=== PATIENT | male | born 1940 | race Caucasian/White ===

== ENCOUNTER → 2016-07-21 | Outpatient (CLI) | payer MEDICARE, OTHER ==
--- NOTE | 2016-07-21 10:15 | RADIOLOGY REPORT (SQ) ---
EXAM DESCRIPTION: U/S RETROPERITON (RENAL/AORTA) COMPLETED DATE/TIME: 07/21/2016 10:00 am REASON FOR STUDY: HEMATURIA (R31.9) R31.9 HEMATURIA, UNSPECIFIED COMPARISON: None. TECHNIQUE: Dynamic and static grayscale images acquired of the kidneys and bladder and recorded on P ACS. Additional selected color Doppler and spectral images recorded. LIMITATIONS: None. FINDINGS: RIGHT KIDNEY: Normal size, 13 cm. Normal echogenicity. No solid or suspicious masses. No h ydronephrosis. No calcifications. LEFT KIDNEY: Normal size, 13.6 cm. Normal echogenicity. No solid or suspicious masses. No hydronephr osis. There is 11 x 15 x 11 mm echogenic focus in the left kidney. Renal pelvis prominent, but ther e is no caliectasis. BLADDER: No masses. Bilateral ureteral jets were seen. OTHER FINDINGS: No other significant finding. IMPRESSION: There is some prominent echogenic focus in the lower calyx of the left kidney suggestive of a large calculus. There is also prominence of the renal pelvis and proximal ureter but there is no true hydronephrosis. TECHNICAL DOCUMENTATION: JOB ID: [id number] [employer]- All Rights Reserved
== END ==
LOC: RAD 08:37
PROVIDERS: ATTEND Urology
DX: R31.9 Hematuria, unspecified (principal)
CPT/HCPCS: 76770

== ENCOUNTER → 2017-05-15 | Outpatient (CLI) | payer MEDICARE, OTHER ==
--- NOTE | 2017-05-15 14:54 | RADIOLOGY REPORT (SQ) ---
EXAM DESCRIPTION: MRI LUMBAR SPINE WITHOUT COMPLETED DATE/TIME: 05/15/2017 2:43 pm REASON FOR STUDY: RADICULOPATHY, LUMBOSCRAL REGION M54.17 RADICULOPATHY, LUMBOSACRAL REGION COMPARISON: None. TECHNIQUE: Sagittal and Axial imaging includes T1, T2, STIR and gradient echo sequences. Coronal T2/ HASTE imaging. LIMITATIONS: None. FINDINGS: VISUALIZED UPPER ABDOMEN: Limited evaluation. No acute or suspicious findings suggested. SEGMENTATION: No transitional anatomy. The lowest well-developed disc space is labeled L5-S1. ALIGNMENT: Anatomic. VERTEBRAE: Intact. BONE MARROW: Normal. No marrow replacement or reactive changes. DISC SIGNAL: Diffuse decreased T2 weighted intervertebral disc signal. POSTERIOR ELEMENTS: Generally intact. No pars defect evident. HARDWARE: None in the spine. CORD AND CONUS: Normal in size and signal intensity. Conus at the L1-2 level. SOFT TISSUES: No aortic aneurysm seen. No bulky retroperitoneal adenopathy or mass. No paraspinal mas s or fluid. T11-12: Mild posterior disc bulging is present with mild facet and ligament hypertrophy. No signifi cant foraminal narrowing. Benign ectasia of the T11 nerve root sleeves bilaterally. T12-L1: No central or foraminal encroachment. Mild bilateral facet hypertrophy. L1-L2: Borderline central canal narrowing results from broad diffuse posterior disc bulge and moderat e bilateral facet and ligament hypertrophy. Mild bilateral inferior foraminal narrowing without exit ing L1 nerve root impingement. L2-L3: Broad diffuse posterior disc bulging is present with moderate to marked bilateral facet and li gament hypertrophy. This causes mild central canal stenosis with flattening of the thecal sac into a triangular shape. Mild bilateral inferior foraminal narrowing without exiting L2 nerve root impinge ment. L3-L4: Broad diffuse posterior disc bulge is present with moderate bilateral facet and ligament hyper trophy. Borderline central canal stenosis. Mild bilateral inferior foraminal narrowing without exit ing L3 nerve root impingement. L4-L5: Mild diffuse posterior disc bulging is present with moderate bilateral facet and ligament hype rtrophy. Mild central canal stenosis with flattening of the thecal sac into a triangular shape. The re is moderate right hand mild left foraminal narrowing without exiting L4 nerve root impingement. L5-S1: Broad diffuse posterior disc bulge and moderate bilateral facet and ligament hypertrophy. No central stenosis. Moderate right, moderate left foraminal narrowing with partial effacement of the f at around the exiting L5 nerve roots. SACRUM: Visualized upper sacrum intact. OTHER: No other significant findings. IMPRESSION: Multilevel foraminal narrowing as above. Multilevel mild central canal narrowing TECHNICAL DOCUMENTATION: JOB ID: [id number] [employer]- All Rights Reserved Reading location - IP/workstation name: [email or web address]
== END ==
LOC: RAD 13:44
PROVIDERS: ATTEND Pain Medicine Interventional Pain Medicine
DX: M54.17 Radiculopathy, lumbosacral region (principal)
CPT/HCPCS: 72148

== ENCOUNTER 2017-11-16 10:28 | Day surgery (SDC) | payer OTHER, MEDICARE ==
[2017-10-29 09:26] LABS: HEMATOCRIT 39.2 % (37.9-51.0); HEMOGLOBIN 12.8 g/dL (13.5-17.0); MEAN CORPUSCULAR HEMOGLOBIN 28.7 pg (27.0-33.4); MEAN CORPUSCULAR HGB CONC 32.5 g/dL (32.0-36.0); MEAN CORPUSCULAR VOLUME 88 fl (80-97); PLATELET COUNT 243 10^3/uL (150-450); RED BLOOD COUNT 4.46 10^6/uL (4.35-5.55); RED CELL DISTRIBUTION WIDTH 15.5 % (11.5-14.0); WHITE BLOOD COUNT 7.1 10^3/uL (4.0-10.5)
--- NOTE | 2017-10-29 09:52 | RADIOLOGY REPORT (SQ) ---
EXAM DESCRIPTION: CHEST PA/LATERAL COMPLETED DATE/TIME: 10/29/2017 9:39 am REASON FOR STUDY: PRE-OP COMPARISON: None. EXAM PARAMETERS: NUMBER OF VIEWS: two views TECHNIQUE: Digital Frontal and Lateral radiographic views of the chest acquired. RADIATION DOSE: NA LIMITATIONS: none FINDINGS: LUNGS AND PLEURA: No opacities, masses or pneumothorax. No pleural effusion. MEDIASTINUM AND HILAR STRUCTURES: No masses or contour abnormalities. HEART AND VASCULAR STRUCTURES: Heart normal size. No evidence for failure. BONES: No acute findings. HARDWARE: None in the chest. OTHER: No other significant finding. IMPRESSION: NO SIGNIFICANT RADIOGRAPHIC FINDING IN THE CHEST. TECHNICAL DOCUMENTATION: JOB ID: [id number] [employer]- All Rights Reserved Reading location - IP/workstation name: [email or web address]
[2017-10-29 09:58] LABS: ANION GAP 11 (5-19); BLOOD UREA NITROGEN 16 mg/dL (7-20); CALCIUM 11.5 mg/dL (8.4-10.2); CARBON DIOXIDE 27 mmol/L (22-30); CHLORIDE 105 mmol/L (98-107); GLUCOSE 93 mg/dL (75-110); POTASSIUM 4.6 mmol/L (3.6-5.0); SODIUM 142.5 mmol/L (137-145)
--- NOTE | 2017-10-29 13:17 | EKG REPORT ---
SEVERITY:- ABNORMAL ECG - SINUS RHYTHM FIRST DEGREE AV BLOCK LEFT AXIS DEVIATION : Confirmed by: Cesar Thomas MD 29-Oct-2017 13:16:00
[~2017-11-16 10:28] MED LIST: CEFAZOLIN 2 GM/D5W RTU 2 GM/50 ML RTUPB IV PRN; DEXAMETHASONE SOD PHOSPHATE INJ 4 MG/1 ML VIAL ONE; GLYCOPYRROLATE 1 MG/5 ML SYRINGE ONE; LACTATED RINGERS 1000 ML IV PRN; LIDOCAINE 0.5% INJ-PF (5 MG/ML) 50 ML SDV SUBCUT PRN; METOCLOPRAMIDE HCL INJ/PF 10 MG/2 ML SDV ONE; NEOSTIGMINE METHYLSULFATE 10 MG/10 ML VIAL ONE; ONDANSETRON HCL INJ/PF 4 MG/2 ML SDV ONE; ROCURONIUM BROMIDE INJ 50 MG/5 ML VIAL IV ONE; SUCCINYLCHOLINE CHLORIDE INJ 200 MG/10 ML VIAL ONE
[2017-11-16] MEDS ORDERED: BUPIVACAINE HCL 0.5 % INJ/PF 30 ML SDV ONE (10:55)
[2017-11-16 12:05] LABS: INTERNATIONAL RATION (INR) 0.99; PROTHROMBIN TIME 13.6 SEC (11.4-15.4)
[2017-11-16 12:06] LABS: PARTIAL THROMBOPLASTIN TIME 26.9 SEC (23.5-35.8)
[2017-11-16] MEDS ORDERED: CEFAZOLIN 2 GM/D5W RTU 2 GM/50 ML RTUPB IV ONE (12:17)
[2017-11-16] MEDS ORDERED: FENTANYL CITRATE INJ/PF 250 MCG/5 ML AMPULE ONE (13:29)
[2017-11-16] MEDS ORDERED: MIDAZOLAM 2 MG/2 ML INJ ONE (13:29)
[2017-11-16] MEDS ORDERED: LIDOCAINE 2% INJ-PF (100 MG/5 ML) SYRINGE ONE (13:29)
[2017-11-16] MEDS ORDERED: MORPHINE SULFATE 10 MG/ML INJ ONE (13:30)
[2017-11-16] MEDS ORDERED: EPHEDRINE SULFATE INJ 50 MG/1 ML AMPULE ONE (13:30)
[2017-11-16] MEDS ORDERED: PROPOFOL INJ 200 MG/20 ML VIAL IV ONE (13:30)
[2017-11-16] MEDS ORDERED: DIPHENHYDRAMINE HCL 50 MG/ML VIAL IV PRN (14:41)
[2017-11-16] MEDS ORDERED: PROMETHAZINE HCL INJ 25 MG/1 ML VIAL IV PRN ×2 (14:41)
[2017-11-16] MEDS ORDERED: FENTANYL CITRATE INJ/PF 100 MCG/2 ML AMPUL IV PRN ×3 (14:41)
[2017-11-16] MEDS ORDERED: MEPERIDINE HCL/PF INJ 25 MG/1 ML DISP.SYRIN IV PRN (14:41)
[2017-11-16] MEDS ORDERED: ONDANSETRON HCL INJ/PF 4 MG/2 ML SDV IV PRN (14:41)
--- NOTE | 2017-11-16 16:08 | Discharge Summary ---
Discharge Summary (SDC) - Discharge Final Diagnosis: umbilical hernia Date of Surgery: 11/16/17 Discharge Date: 11/16/17 Condition: Stable Treatment or Instructions: Discharge home. Diet as tolerated. Activity: No lifting greater than 10 pounds x 6 weeks. Percocet 10/325 mg p.o. every 6 hours as needed pain. Follow -up with me in 7-10 days. Okay to shower in 48 hours. No tub baths times 2 weeks. Referrals: CORNELIA VERMA MD [Primary Care Provider] - Discharge Diet: As Tolerated Respiratory Treatments at Home: Deep Breathing/Coughing, Incentive Spirometer Discharge Activity: No Lifting Over 10 Pounds Report the Following to Your Physician Immediately: Shortness of Breath, Nausea , Vomiting, Increase in Pain, Fever over 101 Degrees, Unusual Bleeding, Redness , Swelling, Warmth
--- NOTE | 2017-11-16 16:28 | Operative Report ---
Nonrecallable Operative Report DATE OF SURGERY: 11/16/17 PREOPERATIVE DIAGNOSIS: Symptomatic umbilical hernia POSTOPERATIVE DIAGNOSIS: same as above OPERATION: robot assisted laparoscopic umbilical hernia repair with mesh SURGEON: CONNOR AREVALO ANESTHESIA: GA TISSUE REMOVED OR ALTERED: None COMPLICATIONS: None apparent ESTIMATED BLOOD LOSS: Minimal PROCEDURE: Drains/implants: 10 x [address] hernia mesh. Procedure in detail: After informed consent was obtained, the patient was brought to the operating room and laid in the supine position. The area of the abdomen was prepped and draped in normal sterile fashion. A 15 blade scalpel was used to create a left upper quadrant incision. The 5 mm camera and 5 mm trocar were introduced into the abdominal cavity under direct laparoscopic visualization using the Optiview technique. Once this was performed, gas insufflation was attached. Pneumoperitoneum was achieved. A 12 mm left lateral abdominal trocar was placed under direct laparoscopic visualization. An 8 mm robotic left lower quadrant trocar was placed under direct laparoscopic visualization. The 5 mm trocar was removed and replaced with an 8 mm robotic trocar. This was also done under direct laparoscopic visualization. The robot was then brought over the patient and docked. I then assumed my position at the surgeon's console. Once the robot was docked, attention was turned to reduction of the hernia sac. Bovie electrocautery and sharp dissection were used to free the hernia sac and reduce it into the abdominal cavity. Once this was completed, the hernia defect was measured. It was approximately 3 cm in total diameter. A 10 x [address] hernia mesh was chosen to adequately cover the defect. The defect was sutured closed using number 1V lock suture in simple running fashion. Once the defect was closed, the mesh was apposed to the anterior abdominal wall. It was sutured into place using 2-0 running V lock suture circumferentially. The mesh was inspected, and the defect was found to be closed adequately. The robot was then undocked and attention was turned to closure of the trocar sites. The 8 mm trocar sites were closed using 0 Vicryl suture in simple interrupted fashion with the aid of the Endo Close device. The 12 mm trocar site was closed using 0 Vicryl suture in [id number] fashion. The overlying skin was closed using 4-0 Vicryl Rapide suture in subcuticular fashion. Dressings were placed, and the procedure was concluded. All sponge, instrument, and needle counts were correct x2. Condition: Stable.
[2017-11-16] MEDS ORDERED: FENTANYL CITRATE INJ/PF 100 MCG/2 ML AMPUL ONE (16:36)
[2017-11-16] MEDS ORDERED: KETOROLAC TROMETHAMINE INJ/PF 30 MG/1 ML SDV ONE (16:51)
[2017-11-16] MEDS ORDERED: KETOROLAC TROMETHAMINE INJ/PF 30 MG/1 ML SDV IV ONE (16:52)
[2017-11-16] MEDS ORDERED: OXYCODONE-ACETAMINOPHEN 5-325 MG TABLET ONE (18:15)
[2017-11-16] MEDS ORDERED: OXYCODONE HCL IR 5 MG TABLET ONE (18:16)
[2017-11-16 19:28] VITALS: BP 141/85
== END 2017-11-16 19:20 | disposition home or self-care (01) ==
LOC: OROUT 10:28
PROVIDERS: ATTEND Surgery
DX: K42.9 Umbilical hernia without obstruction or gangrene (principal); E66.9 Obesity, unspecified; I11.9 Hypertensive heart disease without heart failure; N40.0 Benign prostatic hyperplasia without lower urinary tract symptoms; R60.9 Edema, unspecified; R74.0 Nonspecific elevation of levels of transaminase and lactic acid dehydrogenase [LDH]; E78.01 Familial hypercholesterolemia; R53.83 Other fatigue; K76.0 Fatty (change of) liver, not elsewhere classified; M10.9 Gout, unspecified; E21.3 Hyperparathyroidism, unspecified; I26.99 Other pulmonary embolism without acute cor pulmonale; Z79.01 Long term (current) use of anticoagulants; Z68.35 Body mass index [BMI] 35.0-35.9, adult; Z87.891 Personal history of nicotine dependence; Z79.899 Other long term (current) drug therapy
CPT/HCPCS: 49652; S2900; 36415; 71046; 790; 80048; 85027; 85610; 85730; 86850; 86900; 86901; 93005; 93010; C1781; J0330; J0690; J1100; J1885; J2001; J2250; J2270; J2405; J2704; J2765; J3010; J3490